=== PATIENT | female | born 1980 | race Caucasian/White ===

== ENCOUNTER → 2019-05-15 16:26 | Outpatient (CLI) | payer BC, SELFPAY ==
[2019-05-15 15:42] VITALS: BMI 31.8
[2019-05-15 17:52] LABS: Absolute Lymphocyte Count 2.33 X10^3/uL (0.83-4.51); Absolute Neutrophil Count 6.5 X10^3/uL (2.0-7.7); Basophil# 0.03 X10^3/uL; Basophil% 0.3 % (0-1); Eosinophil# 0.07 X10^3/uL; Eosinophils% 0.7 % (0-5); Hematocrit 41.9 % (37-47); Hemoglobin 13.9 g/dL (12.0-15.0); Lymphocyte # 2.33 X10^3/ul (4.0); Lymphocyte % 23.7 % (19-41); Mean Corp Hgb Conc 33.2 g/dL (32-36); Mean Corpuscular Volume 96.5 fL (81-99); Mean Platelet Vol. 9.3 fl (6.2-12.0); Monocyte# 0.84 X10^3/uL; Monocyte% 8.5 % (0-10); NRBC Flagged by Analyzer 0 % (0-5); Neutrophil # 6.52 X10^3/uL (2.7-7.7); Neutrophil % 66.4 % (47-70); Platelet Count 315 K/mm3 (150-450); RBC Distribution Width CV 12.2 % (11.6-14.6); RBC Distribution Width SD 43.9 fl (35.1-43.9); Red Blood Count 4.34 M/mm3 (4.2-5.4); White Blood Count 9.8 K/mm3 (4.4-11.0)
== END ==
PROVIDERS: Referring Provider Obstetrics & Gynecology; Visit Provider Obstetrics & Gynecology
DX: N93.9 Abnormal uterine and vaginal bleeding, unspecified (principal)
CPT/HCPCS: 36415; 84439; 84443; 85025

== ENCOUNTER → 2019-06-02 12:29 | Outpatient (CLI) | payer BC, SELFPAY ==
[2019-05-15 15:42] VITALS: BMI 31.8
--- NOTE | 2019-06-02 12:31 | US_ITS ---
STUDY: ULTRASOUND OF THE FEMALE PELVIS - COMPLETE REASON FOR EXAM: Female, 38 years old. Abnormal menstrual bleeding. LMP: May 20, 2019. TECHNIQUE: Transabdominal and Transvaginal TECHNICAL QUALITY: Adequate. COMPARISON: None. FINDINGS: The uterus is anteverted and is in a midline position. The uterus is enlarged and measures 10.2 cm x 6 cm x 4.7 cm. Normal uterine cervix. The endometrium measures 6.0 mm in thickness, and is hyperechoic. There is no demonstrated endometrial mass. The uterine echotexture is heterogeneous. 3 small fibroids are seen. The larger measures 1.4 cm x by 1.8 cm x 1.4 cm. I.U.D. - The patient does not have an I.U.D. The right ovary is visualized. The right ovary measures 2.8 cm x 3.6 cm x 2.1 cm. There is a 2 cm x 1.8 cm x 1.8 sinuses within it. There is no visualized right adnexal mass or complex lesion. There is normal arterial and normal venous vascularity. The left ovary is visualized. The left ovary measures 3.9 cm x 2.8 cm x 1.9 cm. There is no left ovarian cyst or ovarian mass. There is no visualized left adnexal mass or complex lesion. There is normal arterial and normal venous vascularity. There is no fluid in the cul-de-sac. The pre void volume of the bladder was 796 ml. Polycystic ovary disease: No. US/Pelvic (Non ) IMPRESSION: Enlarged fibroid uterus. 2 cm x 1.8 cm x 1.8 cm right ovarian cyst. Follow-up is recommended. Electronically Signed: Clifford Minaya, at 15:04 EDT , Service support ,
--- NOTE | 2019-06-02 12:31 | US_ITS ---
STUDY: ULTRASOUND OF THE FEMALE PELVIS - COMPLETE REASON FOR EXAM: Female, 38 years old. Abnormal menstrual bleeding. LMP: May 20, 2019. TECHNIQUE: Transabdominal and Transvaginal TECHNICAL QUALITY: Adequate. COMPARISON: None. FINDINGS: The uterus is anteverted and is in a midline position. The uterus is enlarged and measures 10.2 cm x 6 cm x 4.7 cm. Normal uterine cervix. The endometrium measures 6.0 mm in thickness, and is hyperechoic. There is no demonstrated endometrial mass. The uterine echotexture is heterogeneous. 3 small fibroids are seen. The larger measures 1.4 cm x by 1.8 cm x 1.4 cm. I.U.D. - The patient does not have an I.U.D. The right ovary is visualized. The right ovary measures 2.8 cm x 3.6 cm x 2.1 cm. There is a 2 cm x 1.8 cm x 1.8 sinuses within it. There is no visualized right adnexal mass or complex lesion. There is normal arterial and normal venous vascularity. The left ovary is visualized. The left ovary measures 3.9 cm x 2.8 cm x 1.9 cm. There is no left ovarian cyst or ovarian mass. There is no visualized left adnexal mass or complex lesion. There is normal arterial and normal venous vascularity. There is no fluid in the cul-de-sac. The pre void volume of the bladder was 796 ml. Polycystic ovary disease: No. US/Transvaginal Non- IMPRESSION: Enlarged fibroid uterus. 2 cm x 1.8 cm x 1.8 cm right ovarian cyst. Follow-up is recommended. Electronically Signed: Clifford Minaya, at 15:04 EDT , Service support ,
== END ==
PROVIDERS: Family Provider Nurse Practitioner Family; PCP Nurse Practitioner Family; Referring Provider Obstetrics & Gynecology; Visit Provider Obstetrics & Gynecology
DX: N93.9 Abnormal uterine and vaginal bleeding, unspecified (principal)
CPT/HCPCS: 76830; 76856

== ENCOUNTER 2019-08-01 07:50 | Day surgery (SDC) | payer BC, SELFPAY ==
[2019-06-21 11:08] VITALS: BMI 31.8
[2019-07-21 12:13] VITALS: BMI 31.8
--- NOTE | 2019-07-29 04:41 | HP.PCM_ITS ---
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 Is patient in pain?: No Allergies No Known Allergies Allergy (Verified 07/21/19 12:06) Medications multivitamin,bo-lhxh-unfgagcb tablet 1 tab PO DAILY 05/15/19 [History Confirmed 07/21/19] testosterone 75 mg implant pellet 150 mg SC ONCE 05/15/19 [History Confirmed 07/21/19] Post menopausal: No Patient : No : [facility] History delivery delivered (Acute) Family History Grandmother Breast cancer Social History (Updated 07/21/19 @ 12:13 by Mary Hopper MD) Smoking Status: Never smoker alcohol intake: current details: social substance use type: does not use caffeine: Yes what type of physical activity do you participate in: walking seatbelt use: always do you feel safe at home: Yes additional social history: Sof[employer] Patient works at [employer] [facility] [employer] BS Cysto: Details: PACO KIRBY is a 38 year old who presents for AUB and fibroids, planning an LAVH BS cysto. Female Reproductive History Cycle Length: 21-35 Bleeding Duration: 6 associated symptoms: cramping Menopausal Symptoms: No night sweats Pregancy History 3 Elective abortions Hx Para 3 Spontaneous abortions Hx # Term Pregnancies Ectopic pregnancies Hx # Pregnancies Multiple births # of living children Past Pregnancies Del. Date Name GA/Weeks Outcome Route Bth Weight Infant Gen Labor Lgth Anesthesia Del Locatn Provider FOB Unknown 2000 [facility] live - full term C-se ction Unknown 2004 [place] live - full term C-se ction Unknown 2012 Ganesh live - full term C-sec tion ROS Const Constitutional: Denies fatigue, night sweats, weight gain or weight loss ENT ENT: Reports system reviewed and no additional complaints, except as docu Cardio Card: Denies chest pain Resp Resp: Denies cough or dyspnea GI GI: Reports as per HPI; denies abdominal pain, constipation, nausea or vomiting : Denies nipple discharge, urinary frequency, urinary incontinence, urinary hesitancy, urinary urgency, vaginal discharge, vaginal dryness, vaginal odor or vaginal itching Musc Musc: Denies joint pain, back pain or muscle weakness Skin Skin/Breast: Denies hair loss, change in hair, dry skin, breast lump, breast pain, breast skin changes or nipple discharge Neuro Neuro: Reports system reviewed and no additional complaints, except as docu Psych Psych: Reports system reviewed and no additional complaints, except as docu Endo Endo: Denies cold intolerance, excessive sweating, heat intolerance or increased thirst Humza/Lymph Hematologic/Lymphatic: Denies easy bleeding, Denies easy bruising, Denies enlarged lymph nodes Exam Const General: cooperative, healthy appearing, comfortable, no acute distress, well developed Orientation: alert [facility] Head: normal to inspection, normocephalic Ears: hearing grossly normal bilaterally, external ears normal Nose: external nose normal, nares normal Face and sinus: normal facial exam Neck Neck: normal visual inspection, no lymphadenopathy, trachea midline Thyroid: thyroid normal Chest Chest palpation & inspection: normal inspection of the chest Resp Effort & Inspection: normal respiratory effort Auscultation: clear to auscultation bilaterally Cardio Rate: regular rate Rhythm: regular rhythm Heart Sounds: S1 normal, S2 normal GI Inspection: normal to inspection, non-distended Palpation: soft, no hepatosplenomegaly Musc Other: gross motor intact no deficits, full bilateral strength Skin General: no rashes or lesions noted Neuro General: alert, awake, moves all extremities, no focal motor deficits Motor: muscle tone normal throughout Extrem General: normal to inspection, no pedal edema Psych Appearance: grossly normal Mental Status: mental status grossly normal Affect: normal affect Speech and Movement: speech and movement normal Assessment & Plan Problems 1. Uterine fibroid D25.9 2. Abnormal uterine bleeding N93.9 cbc tsh pelvic ultrasound, fu to discuss treatment Plan After discussing the patient's diagnosis and treatment plan options, patient wishes to proceed with surgical management. I have discussed with the patient the risks, benefits, and alternatives of the procedure which include but are not limited to risks of anesthesia, bleeding, infection, possible damage to bowel, bladder, or surrounding vasculature which could lead to additional surgery to evaluate any complications. Patient agrees to procedure and wishes to proceed. ACOG/uptodate references given for additional information regarding procedure. Coding Level of Care Code No Charge Diagnoses Uterine fibroid D25.9 Abnormal uterine bleeding N93.9
[2019-08-01] VITALS (16 sets, daily range): BP systolic 90–118; BP diastolic 47–77; PULSE 56–98; RESP 14–18; TEMP 36.1–37.3; O2SAT 93–100; BMI 33.3; BMI 34.1
[2019-08-01 08:31] LABS: Hematocrit 39.8 % (37-47); Hemoglobin 13.4 g/dL (12.0-15.0); Mean Corp Hgb Conc 33.7 g/dL (32-36); Mean Corpuscular Hgb 31.9 pg (27.0-32.0); Mean Corpuscular Volume 94.8 fL (81-99); Mean Platelet Vol. 8.8 fl (6.2-12.0); Platelet Count 306 K/mm3 (150-450); RBC Distribution Width CV 12.2 % (11.6-14.6); RBC Distribution Width SD 42.4 fl (35.1-43.9); White Blood Count 8.7 K/mm3 (4.4-11.0)
[2019-08-01 08:32] LABS: Internal QC Validated? YES +Cl - CLEAR BKGD; Pregnancy, Urine Negative Negative
[2019-08-01] MEDS: Lactated Ringers 1,000 ML 40 ML IV ×2 (08:33→12:04)
[2019-08-01] MEDS: dexAMETHasone 10 MG/ML Vial 8 MG IV (08:37)
[2019-08-01 08:39] LABS: Partial Thromboplast Time 28.8 Seconds (24.1-36.2); Prothrombin Time (Protime)PT. 13.4 SECONDS (11.7-14.9)
[2019-08-01] MEDS: Cefazolin 2 GM in 0.9% Normal Saline 100 ML IV (08:40)
[2019-08-01 08:48] LABS: AST(SGOT) 21 U/L (15-37); Alanine Aminotransfer ALT/SGPT 48 U/L (13-56); Albumin, Serum 3.8 g/dL (3.2-5.0); Alkaline Phosphatase 76 U/L (45-117); Bilirubin, Direct 0.06 mg/dL (0.00-0.30); Globulin 3.6 g/dL (2.2-4.2); Protein, Total 7.4 g/dL (6.4-8.2)
[2019-08-01] MEDS: Phenazopyridine 95 MG Tablet 190 MG PO (08:54)
[2019-08-01] MEDS: Celecoxib 200 MG Capsule 400 MG PO (08:54)
[2019-08-01] MEDS: Enoxaparin 40 MG/0.4 ML Syringe SC (08:55)
[2019-08-01] MEDS: Scopolamine 1mg/72hr Patch 1 PATCH TRANSDERM. (08:56)
[2019-08-01] MEDS: Gabapentin 600 MG Tablet PO (08:56)
[2019-08-01] MEDS: Acetaminophen 500 MG Tablet 1000 MG PO ×2 (08:57→16:19)
[2019-08-01] MEDS: Magnesium Sulfate 4gm/100mL 4 GM/100 ML IV.SOLN. IV (09:00)
--- NOTE | 2019-08-01 09:15 | PCM.OPRPT ---
Problem List (1) Uterine fibroid Status: Acute (2) Abnormal uterine bleeding Status: Chronic Comment: plan lavh bs cysto, h/o 3 cs Report of Operation Date of Procedure: 08/01/19 Pre-Operative Diagnosis: aub, prev cs x 3 Post-Operative Diagnosis: same Surgery/Procedure Performed:: lavh bs cysto Description of Surgical Findings:: Dense vesicouterine adhesions staff therapist: Alice Macedo Type of Anesthesia:: General Special Medications: cayetano Specimen's removed: uterus tubes Drains: valles Estimated Blood Loss (mL): 50 Fluids Replaced: crystalloid Description of Procedure: Patient received preoperative antibiotics and SCDs were on preoperatively. Patient was taken back to the operating room and placed in the dorsal lithotomy position. General anesthesia was induced and patient was prepped and draped in normal sterile fashion. Uterine manipulator was placed inside the uterus and Valles catheter placed in the bladder. The umbilicus was grasped with towel clamps and an intraumbilical incision was made after injecting with quarter percent Marcaine and a Veress needle entered into the abdomen confirmed to be intra-abdominal with a low opening pressure. Abdomen was insufflated with CO2 gas and the Veress needle removed and the 5 mm trocar was placed under direct visualization without complication. Right and left lower quadrants were transilluminated and injected with quarter percent Marcaine and 5 mm ports placed under direct visualization. Pelvis was well visualized see operative findings for additional information. Bilateral fallopian tubes were identified and transected with the LigaSure device across the mesosalpinx to the level of the utero-ovarian ligament which was also transected with the LigaSure device. The broad ligament was opened up by transecting the round ligament bilaterally and skeletonizing the uterine vessels bilaterally and creating a bladder flap using the LigaSure device.this was complicated due to the severe dense vesicouterine adhesions but iwth blunt and hydrodissection the bladder flap was created. The uterine arteries were transected bilaterally with good visualization of the bladder and the ureters were seen to be inferior lateral to the operative area. Attention was then paid to the vaginal portion of the procedure and the cervix was grasped with Nilo clamps and circumferentially injected with dilute vasopressin. A circumferential incision was made and the vaginal mucosa was mobilized off posteriorly and the cul-de-sac entered into sharply and a longneck speculum placed. The anterior cul-de-sac was then identified and entered into sharply. The uterosacral ligaments were clamped cut and suture ligated with 0 Monocryl bilaterally followed by the cardinal ligaments which were clamped cut and suture ligated bilaterally with 0 Monocryl. The uterus serially descended and was removed without difficulty with minimal morcellation. Pelvic sidewall pedicles were checked and noted to have excellent hemostasis. The vaginal mucosa was reapproximated incorporating the posterior peritoneum. This was reapproximated using 0 Vicryl tuouoo-qf-wrcan sutures. Excellent hemostasis was noted. The cystoscopy was then performed and bilateral ureteral strong spray was noted and the bladder was noted to have no abnormality or lesions seen. Valles catheter was replaced and then attention paid to the abdominal portion of the procedure again. The pelvis and cul-de-sac was well visualized and no significant active bleeding noted but some raw areas were seen on the peritoneum and therefore Cayetano was applied. Pressure was taken down and the areas visualized and noted of excellent hemostasis. All ports were removed under direct visualization without complication and the abdomen was desufflated of air. The instruments removed from the abdomen and the vagina vaginal sweep was negative. Port sites on the abdomen were closed with 4-0 Monocryl interrupted sutures and Steri's and windows were applied. She was awoken and taken recovery in stable condition. Grafts/Implants Used: none - Complications none Multi Select Codes - Urinary/Genital Urinary/Genital CPT Codes: 05466 Cystoscopy, 87312 LAVH+BS/O <250gr Uterus
--- NOTE | 2019-08-01 09:18 | DCINST_ITS ---
Discharge Diet: No Restrictions Discharge Activity: Return to Normal Activity, May Not Drive, May Shower May resume sexual activity in: 6-8 weeks Call your doctor if your incision/area has: Continuous Slow Oozing, Sudden Increased Bleeding, Increased Pain/ Swelling, Increased Redness, Foul Smelling Discharge Call your doctor if you observe: Fever of 101 or Higher, Inability to urinate, Inability to have a bowel movement, Using more than one pad per hour Allergies/Adverse Reactions: Allergies No Known Allergies Allergy (Verified 07/25/19 11:14) Medications to take at Discharge multivitamin,bb-ektr-kduqzjaf tablet 1 tab PO DAILY 05/15/19 Biotin 10,000 mcg PO DAILY 07/25/19 Cholecalciferol (Vitamin D3) [Vitamin D3] 50 mcg PO DAILY 07/25/19 Cyanocobalamin (Vitamin B-12) [Vitamin B-12] 500 mcg PO DAILY 07/25/19 Diindolylmethane 300 mg PO DAILY 07/25/19 Fish Oil/Borage/Flax/Om3,6,9 1 [[place] 3-6-9 Complex Softgel] 400 mg PO BID 07/25/19 L.acidoph,Paracasei, B.lactis [Probiotic] 1 ea PO DAILY 07/25/19 [place] 1 gm PO QHS 07/25/19 Naproxen [Naprosyn] 250 - 500 mg PO Q8H PRN PRN #30 tab 08/01/19 Oxycodone HCl/Acetaminophen [Percocet 5-325] 1 - 2 tablet PO Q6H PRN PRN 7 Days #15 tablet 08/01/19 The following prescriptions were given: Naproxen [Naprosyn] 250 - 500 mg PO Q8H PRN PRN #30 tab PRN Reason: MILD PAIN Transmission Status: Pending to [facility] Oxycodone HCl/Acetaminophen [Percocet 5-325] 1 - 2 tablet PO Q6H PRN PRN 7 Days #15 tablet PRN Reason: Pain Transmission Status: Sent to [facility] Orders to be completed after discharge: Type & Screen Time Frame: 08/01/19, Facility: [facility], Location: Laboratory Primary Care Physician: Estela Russo NP-C [Primary Care Provider] - Test Results: Test results from this visit will be discussed in further detail at your follow- up appointment, if applicable. Please Follow Up With: Mary Hopper MD - [phone]
[2019-08-01 09:25] LABS: Bedside Glucose 80 mg/dL (70-110)
[2019-08-01] MEDS: Lubricating Jelly 60 GM Tube 30 GM TOPICAL (09:36)
[2019-08-01] MEDS: Bupivacaine 0.25% 30 ML Vial (09:40)
--- NOTE | 2019-08-01 09:40 | HYST_PTH ---
PATIENT: PACO KIRBY LOC: [facility] U#:[id number] AGE/SX: 38/F ROOM: RE08/01/[address]: Dr. Mary Hopper MD : 1980 BED: DIS: 08/02/2019 SPEC #: [id number] RECD: 08/01/19 12:32 STATUS: CRISTIANO SJ #: [id number] KANIKA: 08/01/19 09:[address]: Mary Hopper DEPT: SURGICAL PATHOLOGY RECD BY: Joey Carballo ENTERED: 08/01/19 13:11 SP TYPE: HYSTERECT OTHR DR: Estela Russo, PARTNER MARKETING MANAGER-C Tissues: Uterus, NOS Procedures: Surgery Specimen Level V HEADER OPERATION: ERAS, hysterectomy, LAVH, bilateral salpingectomy, cystoscopy PRE-OP DIAGNOSIS: Uterine fibroid; abnormal uterine bleeding TISSUE SUBMITTED: Uterus and bilateral fallopian tubes MICROSCOPIC DIAGNOSIS Uterus, hysterectomy: Cervix - nabothian cysts and mild chronic inflammation. Endometrium - proliferative endometrium. Myometrium - leiomyoma. Right and left fallopian tubes - benign paratubal cysts. AM:corenlia 08/02/19 MICROSCOPIC DESCRIPTION Slides are reviewed. GROSS DESCRIPTION Received in fixative is one container labeled with the patient's name and designated uterus and bilateral fallopian tubes. The specimen consists of a hysterectomy specimen consisting of uterus with cervix and detached bilateral fallopian tubes. The uterus with cervix weighs 115 gm and measures 10.5 x 7 x 4.5 cm. The serosal surface is woods, glistening and unremarkable. The ectocervical mucosa is also unremarkable. The external os is circular in contour. The endocervical canal measures 4 cm in length and the ectocervical mucosa is woods, glistening and unremarkable. The triangular endometrial cavity measures 5.5 cm in length and 4 cm in width. The endometrial cavity is filled with hemorrhagic fluid. The endometrium is congested, hemorrhagic and measures up to 0.3 cm in thickness. Sections of the uterine wall reveal one nodular mass measuring 1cm in greatest dimension. Sections of this mass reveals woods whorled cut surfaces without areas of hemorrhage, necrosis or cystic degeneration. The uterine wall measures up to 2 cm in thickness. The fallopian tubes are not identified as right or left. One of the fallopian tubes measure 3 cm in length and 0.6 cm in diameter. The fimbrial end is identified. The second fallopian tube is similar appearance to the first one and measures 3.5 cm in length and 0.5 cm in?diameter. Sider sections are submitted in nine cassettes as follows: 1 - anterior cervix, 2??posterior cervix, 3 & 4 - anterior uterine wall, 5 & 6 - posterior uterine wall, 7 - nodular mass, entirely submitted, 8 & 9 - fallopian tubes, each cassette containing one fallopian tube. / ALEXANDRA:cornelia 08/01/19 TC:1 CPT: 45704
[2019-08-01] MEDS: Vasopressin 20 UNITS/ML Vial (10:47)
[2019-08-01] MEDS: Lactated Ringers 1,000 ML 70 ML IV (13:30)
[2019-08-01] MEDS: Ketorolac 30 MG/ML Syringe IV ×2 (14:30→20:47)
[2019-08-01 15:58] LABS: Hematocrit 34.9 % (37-47); Hemoglobin 11.8 g/dL (12.0-15.0); Mean Corp Hgb Conc 33.8 g/dL (32-36); Mean Corpuscular Hgb 32.1 pg (27.0-32.0); Mean Corpuscular Volume 94.8 fL (81-99); Mean Platelet Vol. 8.9 fl (6.2-12.0); Platelet Count 287 K/mm3 (150-450); RBC Distribution Width CV 12.2 % (11.6-14.6); RBC Distribution Width SD 42.5 fl (35.1-43.9); Red Blood Count 3.68 M/mm3 (4.2-5.4); White Blood Count 17.1 K/mm3 (4.4-11.0)
[2019-08-01] MEDS: oxyCODONE 5 MG Tablet PO (16:20)
[2019-08-01] MEDS: Docusate Sodium 100 MG Capsule PO (21:00)
[2019-08-02] MEDS: Acetaminophen 500 MG Tablet 1000 MG PO ×3 (00:29→11:30)
[2019-08-02] MEDS: Lactated Ringers 1,000 ML 70 ML IV (00:30)
[2019-08-02 02:54] VITALS: BP 105/59; PULSE 80; RESP 18; TEMP 37; O2SAT 96
[2019-08-02] MEDS: Ketorolac 30 MG/ML Syringe IV ×2 (03:08→09:51)
[2019-08-02] MEDS: oxyCODONE 5 MG Tablet PO (05:17)
[2019-08-02 05:20] LABS: Hematocrit 31.3 % (37-47); Hemoglobin 10.5 g/dL (12.0-15.0); Mean Corp Hgb Conc 33.5 g/dL (32-36); Mean Corpuscular Volume 95.4 fL (81-99); Mean Platelet Vol. 9.2 fl (6.2-12.0); Platelet Count 265 K/mm3 (150-450); RBC Distribution Width CV 12.1 % (11.6-14.6); RBC Distribution Width SD 42.3 fl (35.1-43.9); Red Blood Count 3.28 M/mm3 (4.2-5.4); White Blood Count 15.6 K/mm3 (4.4-11.0)
[2019-08-02 07:46] VITALS: O2SAT 97
--- NOTE | 2019-08-02 07:59 | PCM.PN.OB ---
Subjective: Doing well. Pain controlled. Tolerating po foods. No CP, SOB. Able to urinate without difficulty, some flatulence. - Physical Exam Vitals/I&O's: Vital Signs Temp Pulse Resp BP Pulse Ox 98.6 F 80 18 105/59 L 96 08/02/19 02:54 08/02/19 02:54 08/02/19 02:54 08/02/19 02:54 08/02/19 02:54 Oxygen Flow Rate (L/min) 6 Oxygen Delivery Method Room Air Weight: 174 lb 13.225 oz Body Mass Index (BMI) 34.1 Intake and Output for Last 24 Hours 07/31/19 08/01/19 08/02/19 23:59 23:59 23:59 Intake Total 2166.83 / 2666.83 1570 / 1570 Output Total 820 / 1820 1500 / 1500 Balance 1346.83 / 846.83 70 / 70 General: Alert, Oriented x3 Abdomen: Soft, Non-Distended, - - Dressings dry and intact Laboratory Results 08/01/19 08:04: Urine Test Negative 08/01/19 08:19: PT 13.4, INR 1.0, APTT 28.8 08/01/19 08:19: Total Bilirubin 0.30, Direct Bilirubin 0.06, AST 21, ALT 48, Alkaline Phosphatase 76, Total Protein 7.4, Albumin 3.8, Globulin 3.6 08/01/19 08:19: WBC 8.7, RBC 4.20, Hgb 13.4, Hct 39.8, MCV 94.8, MCH 31.9, MCHC 33.7, RDW Std Deviation 42.4, RDW Coeff of Marvin 12.2, Plt Count 306, MPV 8.8 08/01/19 08:19: Blood Type O POSITIVE, Antibody Screen NEGATIVE 08/01/19 09:19: POC Glucose 80 08/01/19 15:46: WBC 17.1 H, RBC 3.68 L, Hgb 11.8 L, Hct 34.9 L, MCV 94.8, MCH 32.1 H, MCHC 33.8, RDW Std Deviation 42.5, RDW Coeff of Marvin 12.2, Plt Count 287, MPV 8.9 08/02/19 05:00: WBC 15.6 H, RBC 3.28 L, Hgb 10.5 L, Hct 31.3 L, MCV 95.4, MCH 32.0, MCHC 33.5, RDW Std Deviation 42.3, RDW Coeff of Marvin 12.1, Plt Count 265, MPV 9.2 Current Medications Acetaminophen (Tylenol) 1,000 mg PO Q6 [facility] Last Admin: 08/02/19 05:16 Dose: 1,000 mg Documented by: Docusate Sodium (Colace) 100 mg PO BID [facility] Last Admin: 08/01/19 21:00 Dose: 100 mg Documented by: Enoxaparin Sodium (Lovenox) 40 mg SC DAILY [facility] Lactated Ringer's () 1,000 mls @ 70 mls/hr IV .[id number] [facility] Stop: 08/02/19 13:55 Last Admin: 08/02/19 00:30 Dose: 70 mls/hr Documented by: Ketorolac Tromethamine (Toradol) 30 mg IV Q6H [facility] Stop: 08/02/19 20:31 Last Admin: 08/02/19 03:08 Dose: 30 mg Documented by: Magnesium Oxide (Mag-Ox 400) 400 mg PO DAILY PRN PRN PRN Reason: Constipation Nutritional Formula (Lactose Free) (Ensure Enlive) 120 ml PO TIDCM [facility] Ondansetron HCl (Zofran Odt) 4 mg PO Q6H PRN PRN PRN Reason: NAUSEA Oxycodone HCl (Oxyir) 5 - 10 mg PO Q4H PRN PRN PRN Reason: Pain Score 4-10/10 Last Admin: 08/02/19 05:17 Dose: 10 mg Documented by: Medical Necessity - Tobacco Use Smoking Status: Former smoker Tobacco Use: Non-smoker Assessment/Plan All Active Problems (Last Reviewed 07/21/19 @ 12:07 by Ami Marks) Uterine fibroid (Acute) Postop day #1 MEL, CHASITY Stable Routine care discharge home today.
[2019-08-02 09:47] VITALS: BP 97/61; PULSE 70; RESP 18; TEMP 37.3; O2SAT 98
[2019-08-02] MEDS: Enoxaparin 40 MG/0.4 ML Syringe SC (09:52)
[2019-08-02] MEDS: Docusate Sodium 100 MG Capsule PO (09:52)
== END 2019-08-02 13:05 | disposition home or self-care (01) ==
LOC: SDC 07:51 → AC 07:52 → MS3 12:50
PROVIDERS: Anesthesiology; Family Provider Nurse Practitioner Family; PCP Nurse Practitioner Family; Referring Provider Obstetrics & Gynecology; Visit Provider Obstetrics & Gynecology
PROC: 0UT9FZZ Resection of Uterus, Via Natural or Artificial Opening With Percutaneous Endoscopic Assistance (ICD-10-PCS; CPT 58552; principal; 2019-08-01 09:15)
DX: D25.9 Leiomyoma of uterus, unspecified (principal); N88.8 Other specified noninflammatory disorders of cervix uteri; N72 Inflammatory disease of cervix uteri; N83.8 Other noninflammatory disorders of ovary, fallopian tube and broad ligament; K21.9 Gastro-esophageal reflux disease without esophagitis; Z79.899 Other long term (current) drug therapy
CPT/HCPCS: 58552; 36415; 80076; 81025; 82962; 85027; 85610; 85730; 86850; 86900; 86901; 88307; J7040; J7120